=== PATIENT | female | born 2000 ===

== ENCOUNTER 2022-08-06 06:20 | Day surgery (SDC) | payer BC, SELFPAY ==
--- NOTE | 2022-08-06 05:48 | ENDO_ITS ---
Date of service: 08/06/22 Time of Service: 07:29 Endoscopy Report DATE OF PROCEDURE: 08/06/22 PRE-OP DIAGNOSIS: Diarrhea and GERD POST-OP DIAGNOSIS: same (and gastritis and reflux esophagitis) PROCEDURE: 1. EGD with biopsies 2. Colonoscopy with biopsies SURGEON: Radha Roberts ANESTHESIA TYPE: General:No Airway ESTIMATED BLOOD LOSS: 5 PATHOLOGY: other (Bx of duodenum, antrum and GE junction, randome bx of large intestine) COMPLICATIONS: None DISPOSITION: same day INDICATIONS: Tina is a pleasant 21-year-old female with who has been having severe diarrhea since April of this year.? It is constant.? She is also had fecal incontinence most episodes have happened while asleep.? She also has had some bloating intermittently.? I have asked her to do some stool cultures.? [facility] request [facility] been [facility] to [facility].? We will also go ahead and schedule her for a colonoscopy.? If the colonoscopy shows no abnormalities of the mucosa I will perform random biopsies throughout the large intestine to rule out microscopic colitis.? We discussed the procedure and the risks and benefits.? The prep was discussed in detail.? Risks, benefits and complications have been reviewed. Complications include but are not limited to bleeding, pain, perforation, missed small lesion/polyp, sore throat, aspiration and adverse reaction to the medications. Questions were entertained and answered to their satisfaction and they wished to proceed. No guarantees were given or implied. I thought about checking a calprotectin level but as we are going to do a colonoscopy I do not think it is needed at this time. Proceed with colonoscopy under sedation (2) GERD (gastroesophageal reflux disease): Tina also has a history of GERD and has been complaining of increased h eartburn in the last few weeks.? She is already on omeprazole twice a day.? Recommend doing an upper endoscopy at the time of her colonoscopy to look for ulcers, H. pylori infection and also check for celiac although her blood test was negative.? The procedure was explained in detail.? Risks, benefits and complications have been reviewed. Complications include but are not limited to bleeding, pain, perforation, sore throat, aspiration, and adverse reaction to the medications.? Questions were entertained and answered to their satisfaction and they wished to proceed. No guarantees were given or implied.? If EGD is negative then I recommend working up her gallbladder.? She tells me that she had an ultrasound done at [facility] [place].? I will try to get those results.? If the ultrasound did not show any issues then we would go ahead and order HIDA scan to look for dyskinesia. Proceed with EGD under sedation PREP: Miralax/Dulcolax PROCEDURE START TIME: 07:29 PROCEDURE END TIME: 08:02 COLONOSCOPY RETRACTION TIME: 14 minutes FINDINGS: Upper- inflammation of the stomach and esophagus Lower- normal PROCEDURE DESCRIPTION: After informed consent was obtained the patient was take to the procedure room and placed in a supine position. Monitors were applied and a time out was done. The patients name, date of , procedure type, allergies to medications and metal in their body was reviewed. A bite block was placed and the patient was sedated. Once sedated and comfortable the gastroscope was advanced through the oropharynx which was grossly normal into the esophagus. The proximal and mid- esophagus were normal. In the distal esophagus there was some inflammation noted. The scope was advanced into the stomach and through the pylorus into the 3rd portion of the duodenum. The duodenum was noted to be normal. Biopsies were done to rule out Celiac. The scope was retracted back into the stomach. There was mild to moderate inflammation noted in the antrum. Biopsies were done to rule out H. pylori. There were no ulcers. The scope was retro-flexed. The cardia and fundus were noted to be normal. There was no hiatal hernia noted. The scope was retracted back into the esophagus and biopsies were done of the GE junction to rule out Parham's. The Z line was regular. The GE junction was at 35 cm. While the patient was still sedated they were placed in a left decubitous position. A rectal exam was done. External exam was normal. Internal exam revealed a normal sphincter tone and no palpable masses. The scope was then introduced and retro-flexed. No internal hemorrhoids, masses or polyps were identified on retroflexion. The scope was then advanced to the cecum without difficulty. The ileocecal valve and appendiceal orifice were id entified. The prep was good. The scope was then slowly retracted over 14 minutes back into the rectum. Randome biopsies were done with cold forceps in the ascending, transverse, descending, sigmoid and rectum. There was no diverticulosis noted. The scope was removed and the patient was woken up and taken back to Same day surgery in stable condition. The patient tolerated the procedure well and there were no immediate complications.
--- NOTE | 2022-08-06 05:50 | W.PM.DSUDISC ---
Discharge Plan Disposition Patient Disposition: HOME Condition: Good Discharge Details Reason For Visit: egd/colo Attending Provider: Radha Roberts Primary Care Provider: Sheree Talbot Home Meds and New Rx's Prescriptions: New famotidine [Pepcid] 40 mg tablet 40 mg PO BID Qty: 60 0RF sucralfate [Carafate] 1 gram tablet 1 g PO QID Qty: 56 0RF Rx Instructions: Take before meals and at bedtime Continued calcium polycarbophil [FiberCon] 625 mg tablet 1,250 mg PO DAILY alosetron 0.5 mg tablet 0.5 mg PO DAILY buspirone 30 mg tablet 30 mg PO BID escitalopram oxalate 10 mg tablet 10 mg PO DAILY gabapentin 600 mg tablet 600 mg PO BID methylphenidate HCl 10 mg tablet 10 mg PO DAILY montelukast 10 mg tablet 10 mg PO DAILY ondansetron HCl 4 mg tablet 4 mg PO Q8H albuterol sulfate [ProAir HFA] 90 mcg/actuation HFA aerosol inhaler 2 puff inhalation Q6H PRN sumatriptan succinate 50 mg tablet 50 mg PO ONCE trazodone 50 mg tablet 50 mg PO QHS PRN clonazepam 0.5 mg tablet 1 tab PO BID Label Comments: TAKE ONE TABLET BY MOUTH TWICE A DAY NEEDED Discontinued bisacodyl [Dulcolax (bisacodyl)] 5 mg tablet,delayed release (DR/EC) 5 mg PO ONCE Qty: 4 0RF polyethylene glycol 3350 17 gram/dose powder 17 g PO ONCE Qty: 238 0RF omeprazole 40 mg capsule,delayed release(DR/EC) 40 mg PO BID Discharge Instructions Instructions: Diet for Stomach Ulcers and Gastritis (ED), Esophagitis (DC) Additional Instructions: Findings: Inflammation of the stomach and esophagus Normal large intestine Follow up: I will call with results and make a plan Other: 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 Do not drive or operate dangerous equipment b. Do not drink alcohol beverages or use any recreational drugs for the first 24 hours or while taking pain medications. The medications in your body may have a reaction that can be dangerous. c. Do not make any important decisions or sign any important papers 1. Generally there are no restrictions on your activity after a day or so has gone by, but you may feel a bit fatigued for a few days. 2. After you arrive home you may have a light meal and return to a normal diet as you can tolerate it without feeling sick to your stomach. 3. After surgery, you may feel pain or discomfort. This should be only transient, but if it persists please contact your doctor. 4. If there are any questions regarding the findings of your procedure, please feel free to contact your doctor. 6. If you are unable to contact your doctor with a problem, contact the hospital at [phone]. 7. Continue all your regular medications unless directed otherwise. I understand the above instructions and have no questions. Signature of Patient or Responsible Adult Escort Date/Time Name of Responsible Adult Escort Signature of Nurse Date/Time Referrals: Radha Roberts MD [ [facility] STAFF PHYSICIAN] - Activity:: Activity as Tolerated Diet:: low acid Discharge Orders Discharge Orders: Discharge Order (Routine); Ordered 08/06/22 Ordered By: Radha Roberts
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
[2022-08-06 06:52] VITALS: BP 109/68; PULSE 88; RESP 18; TEMP 36.5; O2SAT 96
[2022-08-06] MEDS: Lactated Ringers 1,000 ML 80 ML IV (07:02)
[2022-08-06 07:10] VITALS: BMI 28.3
--- NOTE | 2022-08-06 07:32 | BOWEL_PTH ---
PATIENT: Tina Simental LOC: [facility] U#:[id number] AGE/SX: 21/F ROOM: RE08/06/[address]: Radha Roberts MD : [id number] BED: DIS: 08/06/2022 SPEC #: [id number] RECD: 08/06/22 12:39 STATUS: MJ REQ #: [id number] WARD: 08/06/22 07:[address]: Radha Roberts DEPT: Surgical Specimen RECD BY: Aria Archuleta ENTERED: 08/06/22 12:42 SP TYPE: Bowel OTHR DR: Sheree Talbot Tissues: 1 - BIOPSY BOWEL 2 - STOMACH BIOPSY 3 - ESOPHAGUS BIOPSY 4 - BIOPSY BOWEL 5 - BIOPSY BOWEL 6 - BIOPSY BOWEL 7 - BIOPSY BOWEL Procedures: GROSS AND MICRO LEVEL 4 Comments: [id number]
[2022-08-06 08:08] VITALS: BP 110/74; PULSE 68; RESP 16; TEMP 36.5; O2SAT 96
--- NOTE | 2022-08-06 08:21 | W.ANESPOSTOP ---
Postoperative Evaluation Date, Time and Location Date Performed: 08/06/22 Time Performed: 08:21 Patient Location: Day Surgery Unit Vital Signs Most Recent Imported Vital Signs: Most Recent Vital Signs Temp Pulse Resp BP Pulse Ox 36.5 C 68 16 110/74 96 08/06/22 08:08 08/06/22 08:08 08/06/22 08:08 08/06/22 08:08 08/06/22 08:08 Pain Score Most Recent Pain Score: Most Recent Pain Score Pain Level 0 08/06/22 08:08 Assessment Mental Status: Awake (Alert & Oriented to Patient Baseline) Airway and Respiratory Function: Patent airway with normal (patient baseline) respiratory exam Cardiovascular Function: Hemodynamically Stable Hydration Status: Adequately Hydrated Nausea & Vomiting: No Nausea or Vomiting Pain: Pt. Denies Any Pain Peripheral Nerve Block: Patient did not receive a nerve block
[2022-08-06 08:39] VITALS: BP 107/71; PULSE 66; RESP 16; TEMP 36.6; O2SAT 97
== END 2022-08-06 08:54 | disposition home or self-care (01) ==
PROVIDERS: PCP Internal Medicine; Visit Provider Surgery
PROC: (CPT 45380; principal; 2022-08-06 07:30)
DX: K21.9 Gastro-esophageal reflux disease without esophagitis (principal); K29.70 Gastritis, unspecified, without bleeding; R19.7 Diarrhea, unspecified; K31.89 Other diseases of stomach and duodenum; K22.89 Other specified disease of esophagus; K63.89 Other specified diseases of intestine
CPT/HCPCS: 45380; 43239; 81025; 88305; J2405; J2704